=== PATIENT | female | born 2000 | race Caucasian/White ===

== ENCOUNTER 2020-12-22 20:43 | Emergency (ER) | payer OTHER ==
[~2020-12-22] VITALS: Ht 162.6 cm; Wt 54.5 kg
[~2020-12-22 20:43] MED LIST: ACETAMINOPHEN W1 TA6 PO; FLAGYL500 MG PO; GENTAMICIN EYE D5 ML OP; NO HOME MEDICATIONS
[2020-12-22 20:46] VITALS: BP 122/92; TEMP 97.8
[2020-12-22] MEDS ORDERED: LAMICTAL 100MG100 MG PO (20:59)
[2020-12-22] MEDS ORDERED: ADDERALL20 MG PO (21:00)
[2020-12-22] MEDS ORDERED: ADDERALL10 MG PO (21:00)
[2020-12-22] MEDS ORDERED: NAPROSYN500 MG PO (22:19)
[2020-12-22] MEDS ORDERED: FLEXERIL 1010 MG/TAB PO (22:19)
[2020-12-22 22:29] VITALS: PULSE 82
== END 2020-12-22 22:29 | disposition home or self-care (01) ==
LOC: COL.ER 20:43
DX: M54.2 Cervicalgia (principal); R51.9 Headache, unspecified; R42 Dizziness and giddiness; Z88.1 Allergy status to other antibiotic agents; Z88.0 Allergy status to penicillin; Z88.6 Allergy status to analgesic agent; V89.2XXA Person injured in unspecified motor-vehicle accident, traffic, initial encounter
CPT/HCPCS: J1885

== ENCOUNTER 2021-02-14 13:04 | Emergency (ER) | payer BC ==
[~2021-02-14] VITALS: Ht 162.6 cm; Wt 52.3 kg
[~2021-02-14 13:04] MED LIST changes: +ADDERALL10 MG PO; +ADDERALL20 MG PO; +FLEXERIL 1010 MG/TAB PO; +LAMICTAL 100MG100 MG PO; +NAPROSYN500 MG PO
[2021-02-14 13:23] VITALS: TEMP 97.9
[2021-02-14 14:07] LABS: HEMATOCRIT 43.5 % (37.0-47.0); HEMOGLOBIN 15.4 g/dl (12.5-16.0); MEAN CELL VOLUME 90 fl (80.0-100.0); MEAN CORPUSCULAR HEMOGLOBIN 32 pg (27.0-31.0); MEAN CORPUSCULAR HGB CONC 35 g/dl (33.0-37.0); MEAN PLATELET VOLUME 10.6 fl (7.4-10.4); PLATELET COUNT 213 K/mm3 (130-400); RED BLOOD COUNT 4.81 M/mm3 (4.10-5.30); REDCELL DISTRIBUTION WIDTH-CV 11.9 % (11.5-14.5)
[2021-02-14 14:13] LABS: ALBUMIN 4.5 gm/dL (3.5-5.0); BILIRUBIN,TOTAL 1.4 mg/dL (0.0-1.0); CREATININE, serum 0.62 (0.52-1.25); POTASSIUM 3.8 mmol/L (3.4-5.0); TOTAL PROTEIN 7.2 gm/dL (6.4-8.2)
[2021-02-14 14:37] LABS: BAND 8 % (0-10); LYMPHOCYTE 4 % (20.0-51.0); NEUTROPHILS 84 % (42.0-75.2)
[2021-02-14 15:33] LABS: COLLECTION METHOD CLEAN CATCH
[2021-02-14 15:44] LABS: MUCOUS Present /lpf; PH 5 (5-8); URINE APPEARANCE Hazy; URINE BACTERIA None Seen /hpf; URINE BILIRUBIN Negative (NEGATIVE); URINE BLOOD Negative (NEGATIVE); URINE COLOR Yellow; URINE GLUCOSE Negative (NEGATIVE); URINE KETONE Trace (NEGATIVE); URINE LEUKOCYTE ESTERASE Negative (NEGATIVE); URINE NITRATE Negative (NEGATIVE); URINE PROTEIN(semi-quant) 1+ (NEGATIVE); URINE UROBILINOGEN Negative (NEGATIVE)
[2021-02-14] MEDS ORDERED: ZOFRAN ODT4 MG PO (16:02)
[2021-02-14 16:20] VITALS: BP 101/67; PULSE 94
== END 2021-02-14 16:20 | disposition home or self-care (01) ==
LOC: COL.ER 13:04
PROVIDERS: Physician Assistant
DX: K52.9 Noninfective gastroenteritis and colitis, unspecified (principal); Z32.02 Encounter for pregnancy test, result negative; Z88.1 Allergy status to other antibiotic agents; Z88.6 Allergy status to analgesic agent
CPT/HCPCS: J1885; J2405; J7030

== ENCOUNTER 2022-07-07 21:16 | Emergency (ER) | payer BC ==
[~2022-07-07] VITALS: Ht 162.6 cm; Wt 49.1 kg
[~2022-07-07 21:16] MED LIST changes: +ZOFRAN ODT4 MG PO
[2022-07-07 21:43] VITALS: TEMP 98.1
[2022-07-07 23:31] LABS: BASO # 0.1 K/mm3 (0.0-0.2); BASO % 0.8 % (0.0-2.0); EOS # 0.1 K/mm3 (0.0-0.7); GRAN # 4.3 K/mm3 (1.4-6.5); GRAN % 59.3 % (42.2-75.2); HEMATOCRIT 45.2 % (37.0-47.0); HEMOGLOBIN 15.7 g/dl (12.5-16.0); LYMPH # 2.3 K/mm3 (1.2-3.4); LYMPH % 31.4 % (20.0-51.0); MEAN CELL VOLUME 92 fl (80.0-100.0); MEAN CORPUSCULAR HEMOGLOBIN 32 pg (27-31); MEAN CORPUSCULAR HGB CONC 35 g/dl (33.0-37.0); MEAN PLATELET VOLUME 10.7 fl (7.4-10.4); MONO # 0.5 K/mm3 (0.1-0.6); MONO % 7.4 % (1.7-9.3); PLATELET COUNT 266 K/mm3 (130-400); RED BLOOD COUNT 4.89 M/mm3 (4.10-5.30); REDCELL DISTRIBUTION WIDTH-CV 11.5 % (11.5-14.5)
[2022-07-07 23:44] LABS: CALCIUM 9.8 mg/dL (8.4-10.2); CREATININE, serum 0.77 mg/dL (0.57-1.11)
[2022-07-08] MEDS ORDERED: FLEXERIL5 MG PO (00:54)
[2022-07-08 01:15] VITALS: BP 11/76; PULSE 94
== END 2022-07-08 01:15 | disposition home or self-care (01) ==
LOC: COL.ER 21:16
PROVIDERS: Emergency Medicine
DX: R51.9 Headache, unspecified (principal); M54.2 Cervicalgia; R73.9 Hyperglycemia, unspecified
CPT/HCPCS: J1200; J1885; J2765; J7030